=== PATIENT | male | born 1995 | race Caucasian/White ===

== ENCOUNTER → 2016-08-27 | Outpatient (REF) | LOC: WSOH 12:36 | DX: Z02.89 Encounter for other administrative examinations (principal) ==

== ENCOUNTER → 2016-09-05 | Outpatient (REF) | LOC: WSOH 08:58 | DX: Z00.00 Encounter for general adult medical examination without abnormal findings (principal) ==

== ENCOUNTER 2017-05-03 18:05 | Emergency (ER) | payer SELFPAY ==
[~2017-05-03] VITALS: Ht 180.3 cm; Wt 100.0 kg
[2017-05-03 18:08] VITALS: BP 125/61; TEMP 98.1
[2017-05-03] MEDS ORDERED: NORCO 325 MG-7.1 TAB PO (18:49)
[2017-05-03 19:06] VITALS: PULSE 61
== END 2017-05-03 19:07 | disposition home or self-care (01) ==
LOC: COL.ER 18:05
DX: S86.912A Strain of unspecified muscle(s) and tendon(s) at lower leg level, left leg, initial encounter (principal); X50.0XXA Overexertion from strenuous movement or load, initial encounter
CPT/HCPCS: L1830